=== PATIENT | male | born 1965 | race Caucasian/White ===

== ENCOUNTER → 2019-07-20 11:01 | Outpatient (CLI) | payer SELFPAY ==
[2018-09-22 14:59] VITALS: BMI 29.5
[2019-07-20 11:11] VITALS: BP 147/91; PULSE 69; RESP 14; TEMP 36.3
--- NOTE | 2019-07-20 11:52 | WMO.HTC_ITS ---
Problem List (1) Hemophilia B Status: Chronic Subjective Date of Service:: 07/20/19 Chief Complaint: F/u for Hemophilia B. 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 Feels well. Did 1 factor replacement in April 2019 for bruising of L ankle. Has not seen a Dentist this yr, he is edentulous. Health History: Past Medical History (Last Reviewed 07/20/19 @ 11:11 by Isabel Sena) Hemophilia B (Acute) eye surgery (Acute) Family History (Last Reviewed 07/20/19 @ 11:11 by Isabel Sena) Mother Diabetes Social History Social History: No changes Smoking Status Former smoker Allergies/Adverse Reactions: Allergy/AdvReac Type Severity Reaction Status Date / Time aspirin AdvReac Severe Other Verified 07/20/19 11:11 Risk Factors Social History Social History: No changes Smoking Status Former smoker Tobacco Risk Data: Tobacco Risk Smoking Status Former smoker Type of tobacco: Smokeless tobacco usage: Items/Day: Year started: Years used: Counseled to quit/cut down: Reason for no counseling performed: Reason for no pharmacotherapy: Tobacco use comments: Passive smoke exposure: Substance Risk Drug use: No Caffeine use [drinks/day]: Alcohol use: No Type of alcohol: Drinks per day: Has patient felt the need to cut down: Has the patient been annoyed by complaints: Has the patient felt guilty about drinking: Has the patient needed an eye mechanical integrity specialist in the mornings: Comments: Review of Systems Constitutional:: Denies: Fever, Sweats, Weight loss, Appetite change, Chills Cardiovascular:: Denies: Chest pain, Palpitations, Dyspnea on exertion, Orthopnea, PND, Shortness of breath Respiratory: Denies: Cough, Hemoptysis, Shortness of Breath, Wheezing Gastrointestinal:: Denies: Abdominal pain, Nausea, Vomiting, Diarrhea, Constipation, Hematochezia Genitourinary: Denies: Dysuria, Hematuria, 15, Flank pain Musculoskeletal:: Denies: Back pain, Myalgia, Arthralgia Skin: Denies: Rash, Skin Changes, Wounds Neurological:: Denies: Headache, Dizziness, Visual changes, Tinnitus, Hearing loss Psychiatric: Denies: Anxiety, Depression, Homicidal Ideations, Suicidal Ideations Vital Signs Weight: 88.904 kg Weight in Pounds 196.0 lbs Temperature 97.3 F Pulse Rate 69 Respiratory Rate 14 Blood Pressure 147/91 Blood Pressure Position Sitting - Physical Exam General: Alert, Oriented x3, No apparent distress HEENT: Atraumatic, Normocephalic, - - Corneal opacification R eye. Oropharynx:: Dry mucosa Neck:: Supple, Trachea midline. Negative for: JVD, bilateral Cardiac:: Regular rate, Regular rhythm, Normal S1, Normal S2. Negative for: Murmur Lungs: Clear to auscultation, Excusion symmetrical. Negative for: Rhonchi, Wheezes Abdomen:: Bowel sounds x 4, Soft, Non-tender, Non-distended. Negative for: Hepatosplenomegaly Extremities:: Negative for: Cyanosis, Edema Neurological: Neuro grossly intact Skin:: Negative for: Lesions, Rash, Petechiae, Ecchymosis Psychiatric:: Appropriate affect, Euthymic Lymphatics:: Negative for: Cervical lymphadenopathy, Supraclavicular lymphadenopathy, Axillary lymphadenopathy Assessment and Plan Hemophilia B, clinically stable. Plan is to continue expectant management with Factor replacement as needed. RTC 1 yr. Primary Care Provider: MAURICIO BARRON Referring Provider:
== END ==
PROVIDERS: Visit Provider Internal Medicine Medical Oncology
DX: D67 Hereditary factor IX deficiency (principal)